=== PATIENT | female | born 1990 | race Caucasian/White ===

== ENCOUNTER → 2017-03-26 | Outpatient (CLI) | payer BC ==
--- NOTE | 2017-03-26 12:26 | Diagnostic Imaging Report ---
INDICATION: survey. TECHNIQUE: Multiple real-time grayscale images were obtained over the gravid uterus. COMPARISON: None FINDINGS: There is a single intrauterine with heart rate of 146 beats per minute. The placenta is anterior and is near the internal os compatible with marginal previa. There is adequate amniotic fluid seen. The cervix is 4.9 cm in length and is closed. The stomach, kidneys, posterior fossa, lateral ventricles, the spine, and two umbilical arteries are seen with no definite abnormality. The four-chamber view and cord insertion are not well seen. Biometrical measurements are as follows: Biparietal 4.28 cm, age 19 weeks 0 days. Head circumference 16.53 cm, age 19 weeks 2 days. Abdominal circumference 13.35 cm, age 18 weeks 6 days. Femur length 3.08 cm, age 19 weeks 4 days. Sonographic estimate age: 19 weeks 2 days. Sonographic estimated date of delivery: 08/18/17. Estimated Weight: 278 gm (+/- 41 gm). LMP percentile: 10%. heart rate: 146 beats per minute. number: 1 of 1. IMPRESSION: Live single intrauterine . Followup study to reevaluate placenta previa, four-chamber view and cord insertion is recommended. Dictated by: Dictated on workstation # [id number]
== END ==
LOC: RAD 10:13
PROVIDERS: ATTEND Obstetrics & Gynecology
DX: Z36.87 Encounter for antenatal screening for uncertain dates (principal); Z3A.19 19 weeks gestation of pregnancy
CPT/HCPCS: 76805

== ENCOUNTER 2017-08-03 19:39 | Outpatient (CLI) | payer BC ==
[~2017-08-03] VITALS: Ht 165.1 cm; Wt 78.9 kg
[2017-08-03 19:37] VITALS: BP 123/69
[2017-08-03] MEDS ORDERED: PREN1TAB19 PO (22:00)
--- NOTE | 2017-08-04 10:52 | Physician Query-Final Dx ---
SOLITARIO MESSINA 08/04/17 1052: Clinic Account Progress/Dx Physician Query: Please give diagnosis Date of Service Aug 03, 2017 at 19:39 STEVEN JEFFREY DO 08/04/17 1559: Clinic Account Progress/Dx DIAGNOSIS: Diagnosis 38 week IUP Prolonged latent phase labor SOLITARIO MESSINA Aug 04, 2017 10:52 STEVEN JEFFREY DO Aug 04, 2017 15:59
== END 2017-08-03 21:05 | disposition home or self-care (01) ==
LOC: WSo 19:39 → LDRP 19:40 → WSo 21:05
PROVIDERS: ATTEND Obstetrics & Gynecology
DX: O62.0 Primary inadequate contractions (principal); Z3A.38 38 weeks gestation of pregnancy
CPT/HCPCS: 99213

== ENCOUNTER 2017-08-17 06:30 | Inpatient (IN) | payer BC ==
[2017-08-17] VITALS (63 sets, daily range): BP systolic 104–141; BP diastolic 55–82
[~2017-08-17] VITALS: Ht 170.2 cm; Wt 80.7 kg
[~2017-08-17 06:30] MED LIST: PREN1TAB19 PO
[2017-08-17] MEDS ORDERED: MINERAL OIL CONCENTRATE 99.9% 15 ML UDC TOP PRN (07:15)
[2017-08-17] MEDS: D5 LR IV SOLUTION 1,000 ML IV SCH ×2 (07:48→15:47)
[2017-08-17 07:50] LABS: BASOPHILS % (AUTO) 0 % (0-10); EOSINOPHILS # (AUTO) 0.1 10^3/uL (0.0-0.3); EOSINOPHILS % (AUTO) 2 % (0-10); HEMATOCRIT 38 % (35-52); HEMOGLOBIN 13.3 G/DL (11.5-16.0); LYMPHOCYTES # (AUTO) 1.4 X 10^3 (1.0-4.0); LYMPHOCYTES % (AUTO) 20 % (12-44); MEAN CORPUSCULAR HEMOGLOBIN 34 PG (25-34); MEAN CORPUSCULAR HGB CONC 35 G/DL (32-36); MEAN CORPUSCULAR VOLUME 98 FL (80-99); MEAN PLATELET VOLUME 8.9 FL (7.4-10.4); MONOCYTES # (AUTO) 0.7 X 10^3 (0.0-1.0); MONOCYTES % (AUTO) 10 % (0-12); NEUTROPHILS # (AUTO) 4.5 X 10^3 (1.8-7.8); NEUTROPHILS % (AUTO) 67 % (42-75); PLATELET COUNT 169 10^3/uL (130-400); RED BLOOD COUNT 3.87 10^6/uL (4.35-5.85); RED CELL DISTRIBUTION WIDTH 13.2 % (10.0-14.5); WHITE BLOOD COUNT 6.8 10^3/uL (4.3-11.0)
--- NOTE | 2017-08-17 08:23 | History & Physical-OB ---
OB - Chief Complaint & HPI Date/Time Date of Admission: Date of Admission: Aug 17, 2017 at 6:30 am Time Seen by Provider: 08:15 Chief Complaint/History OB-Reason for Admission/Chief: Induction of Labor Hx : 1 Hx Para: 0 Expected Date of Delivery: Aug 13, 2017 Gestational Age in Weeks: 40 Gestational Age in Days: 4 Indication for induction: post dates Admission Nurse Assessment Rev: Yes History of Labs O pos Antibody neg RI RPR NR HBsAg NR HIV NR GC neg GBS neg Allergies and Home Medications Allergies Coded Allergies: No Known Drug Allergies (Unverified , 08/03/17) Home Medications Vit/Iron Fumarate/FA 1 Each Tablet, 1 EACH PO DAILY, (Reported) Patient Home Medication List Home Medication List Reviewed: Yes OB - History Hx of Present Care: Yes Ultrasounds: Normal mid trimester US Obstetrical Complications: None Medical Complications: None Delivery History Adverse Rxn to Tranfusion: No Patient Past Medical History n/a Social History/Family History Recent Infectious Disease Expo: No Alcohol Use: Denies Use Recreational Drug Use: No Immunizations Hepatitis A: Yes Hepatitis B: Yes Date of Influenza Vaccine: Mar 08, 2017 OB - Admission Exam Physical Exam HEENT: NCAT Heart: Rhythm Normal Lungs: Clear Abdomen: Gravid Extremities: Normal Reflexes: Normal Cervical Dilatation: 4cm Effacement: 75% Station: -1 Membranes: Intact Heart Rate: 130's Accelerations: Accelerations Present Decelerations: No Decelerations Short Term Variability: Present Skilled Nursing Variability: Average (6-25) Contractions on Admission: 6-10 Minutes Apart Intensity: Mild Nielsen Scoring Tool (Modified) Dilation (cm): 3-4cm (2) Effacement (%): 51-79% (2) Descent/Station: -1,0 (2) Cervix Consistency: Soft (2) Cervix Position: Anterior (2) Subtract 1 point for: Postdate (-1), Nulliparity (-1) Nielsen Score: 8 Labs Laboratory Tests Test 08/17/17 07:30 Range/Units White Blood Count 6.8 4.3-11.0 10^3/uL Red Blood Count 3.87 L 4.35-5.85 10^6/uL Hemoglobin 13.3 11.5-16.0 G/DL Hematocrit 38 35-52 % Mean Corpuscular Volume 98 80-99 FL Mean Corpuscular Hemoglobin 34 25-34 PG Mean Corpuscular Hemoglobin Concent 35 32-36 G/DL Red Cell Distribution Width 13.2 10.0-14.5 % Platelet Count 169 130-400 10^3/uL Mean Platelet Volume 8.9 7.4-10.4 FL Neutrophils (%) (Auto) 67 42-75 % Lymphocytes (%) (Auto) 20 12-44 % Monocytes (%) (Auto) 10 0-12 % Eosinophils (%) (Auto) 2 0-10 % Basophils (%) (Auto) 0 0-10 % Neutrophils # (Auto) 4.5 1.8-7.8 X 10^3 Lymphocytes # (Auto) 1.4 1.0-4.0 X 10^3 Monocytes # (Auto) 0.7 0.0-1.0 X 10^3 Eosinophils # (Auto) 0.1 0.0-0.3 10^3/uL Basophils # (Auto) 0.0 0.0-0.1 10^3/uL OB - Assessment/Plan/Diagnosis Assessment Assessment: induction of labor Admission Dx 26 yo @ 40.4 Post dates GBS neg Admission Status: Inpatient Order (span 2 midnights) Reason for Inpatient Admission: 26 yo @ 40.4 Post dates GBS neg Plan Plan: Induction Induction Method: AROM Discharge Diagnosis Diagnosis: 26 yo @ 40.4 Post dates GBS neg STEVEN JEFFREY DO Aug 17, 2017 8:23 am
[2017-08-17] MEDS ORDERED: OXYTOCIN/NORMAL SALINE 500 ML IV SCH ×2 (12:23→20:32)
[2017-08-17] MEDS ORDERED: SUFENTA 0.6MCG/ML BUPIVA 0.125 100 ML ONE (12:31)
[2017-08-17] MEDS ORDERED: LACTATED RINGERS 1,000 ML IV SCH (13:43)
[2017-08-17] MEDS ORDERED: EPIDURAL (SUFENTA 0.6MCG/ML BUPIVA 0.125%) 100 ML BAG EPI SCH (13:45)
[2017-08-17] MEDS ORDERED: diphenhydrAMINE 50 MG/ML INJ (BENADRYL) IV PRN (13:45)
[2017-08-17] MEDS ORDERED: NALOXONE 0.4 MG/ML 1 ML (NARCAN) VIAL IV PRN ×2 (13:45)
[2017-08-17] MEDS ORDERED: ONDANSETRON 4 MG/2 ML (SDV) Z0FRAN IV PRN (13:45)
[2017-08-17] MEDS ORDERED: METOCLOPRAMIDE INJ 10 MG/2 ML (REGLAN) IV PRN (13:45)
[2017-08-17] MEDS ORDERED: CATHETER FLUSH 10 ML SYR IV SCH ×2 (14:00→22:00)
[2017-08-17] MEDS ORDERED: BUPIVACAINE 0.25% 30 ML (SENSORCAINE) VIAL ONE (18:08)
[2017-08-17] MEDS ORDERED: LIDOCAINE PF 2% 5 ML (XYLOCAINE) VIAL ONE (18:08)
[2017-08-17] MEDS ORDERED: LIDOCAINE/EPI 2% 1:200,00 (XYLOCAINE) 10 ML VIAL ONE (19:36)
--- NOTE | 2017-08-17 20:36 | OB Labor & Delivery Record ---
L&D History Date of Service Date of Service: Aug 17, 2017 History Expected Date of Delivery: Aug 13, 2017 Gestational Age in Weeks: 40 Hx : 1 Hx Para: 0 Complications Events: Routine care Operative Indications (Cesarea: N/A-Vaginal Delivery Intrapartal Events: None L&D Stage1 Stage One Onset of Labor - Date: Aug 17, 2017 Monitors and Tracing Monitor Mode: External Heart Rate: 130 Monitor Accelerations: Uniform Monitor Decelerations: None Station: 0 [employer] Salesperson Variability: Average (6-10) Short Term Variability: Present Presentation: Vertex Vital Signs VS - Last 72 Hours, by Label 08/17/17 08/17/17 08/17/17 08/17/17 09:00 10:00 11:00 12:04 Temp 98.6 99.3 Pulse 72 90 86 91 Resp 18 B/P (MAP) 119/82 (94) 120/76 (91) 127/74 (91) 120/75 (90) O2 Delivery Room Air Room Air Room Air Room Air 08/17/17 08/17/17 08/17/17 08/17/17 13:00 13:15 13:25 13:28 Temp 99.5 Pulse 84 85 87 Resp 20 B/P (MAP) 129/71 (90) 138/74 (95) 131/82 (98) Pulse Ox 98 98 98 O2 Delivery Room Air Room Air Room Air 08/17/17 08/17/17 08/17/17 08/17/17 13:30 13:33 13:38 13:42 Pulse 94 83 88 78 B/P (MAP) 132/81 (98) 134/75 (94) 126/70 (88) Pulse Ox 98 98 97 97 O2 Delivery Room Air Room Air Room Air Room Air 08/17/17 08/17/17 08/17/17 08/17/17 13:45 13:48 13:51 13:54 Pulse 78 76 75 84 B/P (MAP) 120/67 (84) 123/67 (85) 123/71 (88) 120/68 (85) Pulse Ox 97 97 96 96 O2 Delivery Room Air Room Air Room Air Room Air 08/17/17 08/17/17 08/17/17 08/17/17 13:57 14:00 14:03 14:06 Pulse 94 80 85 76 B/P (MAP) 112/63 (79) 117/60 (79) 119/63 (81) 116/62 (80) Pulse Ox 94 97 95 O2 Delivery Room Air Room Air Room Air Room Air 08/17/17 08/17/17 08/17/17 08/17/17 14:09 14:10 14:15 14:20 Pulse 86 71 90 81 B/P (MAP) 114/63 (80) 113/65 (81) 110/59 (76) Pulse Ox 95 95 95 95 O2 Delivery Room Air Room Air Room Air Room Air 08/17/17 08/17/17 08/17/17 08/17/17 14:25 14:30 14:45 15:00 Pulse 79 71 88 85 Resp 16 B/P (MAP) 115/67 (83) 114/64 (81) 114/70 (85) Pulse Ox 95 96 97 98 O2 Delivery Room Air Room Air Room Air Room Air 08/17/17 08/17/17 08/17/17 08/17/17 15:15 15:30 15:45 15:45 Temp 98.4 Pulse 78 82 91 B/P (MAP) 115/59 (77) 117/64 (81) 127/67 (87) Pulse Ox 97 98 98 O2 Delivery Room Air Room Air Room Air Room Air 08/17/17 08/17/17 08/17/17 08/17/17 16:00 16:15 16:30 16:45 Pulse 81 74 75 68 B/P (MAP) 123/64 (83) 111/66 (81) 126/69 (88) 131/73 (92) Pulse Ox 97 98 98 99 O2 Delivery Room Air Room Air Room Air Room Air 08/17/17 08/17/17 08/17/17 08/17/17 17:00 17:15 17:30 17:45 Pulse 71 78 68 64 B/P (MAP) 132/75 (94) 139/74 (95) 116/59 (78) 107/58 (74) Pulse Ox 99 99 99 99 O2 Delivery Room Air Room Air Room Air Room Air 08/17/17 08/17/17 08/17/17 08/17/17 17:48 17:51 17:54 18:00 Pulse 68 76 71 72 B/P (MAP) 124/79 (94) 120/68 (85) 121/70 (87) 115/60 (78) Pulse Ox 98 99 O2 Delivery Room Air Room Air Room Air Room Air 08/17/17 08/17/17 08/17/17 08/17/17 18:00 18:05 18:08 18:11 Temp 98.6 Pulse 76 71 73 B/P (MAP) 111/57 (75) 107/57 (74) 104/55 (71) Pulse Ox 99 99 99 O2 Delivery Room Air Room Air Room Air 08/17/17 08/17/17 08/17/17 08/17/17 18:14 18:17 18:20 18:23 Pulse 75 74 85 80 B/P (MAP) 109/55 (73) 105/59 (74) 109/64 (79) 113/63 (80) Pulse Ox 99 99 99 99 O2 Delivery Room Air Room Air Room Air Room Air 08/17/17 08/17/17 08/17/17 08/17/17 18:26 18:29 18:32 18:35 Pulse 78 80 81 72 B/P (MAP) 116/61 (79) 109/56 (73) 116/60 (78) 109/58 (75) Pulse Ox 99 99 100 O2 Delivery Room Air Room Air Room Air Room Air 08/17/17 08/17/17 08/17/17 18:38 18:45 19:00 Pulse 75 82 82 B/P (MAP) 110/59 (76) 119/63 (81) 119/63 (81) Pulse Ox 100 100 100 O2 Delivery Room Air Room Air Room Air Rupture of Membranes Spontaneous Ruture of Membrane: No Amniotic Membrane Rupture Time: 0758 Amniotic Membrane Fluid Desc.: Clear Vaginal Bleeding Description: Normal Show Induction/Anesthesia Epidural Cath Placement - Time: 1333 Progress/Notes Pitocin augmentation was started using a low dose protocol, after epidural was placed. L&D Stage2 Stage Two Stage II Date: Aug 17, 2017 Monitors and Tracing Monitor Mode: External Heart Rate: 130 Monitor Accelerations: Uniform Monitor Decelerations: Variable Mcc Variability: Moderate (11-25) Short Term Variability: Present Position: Right Occiput Anterior (with a compound presentation of the left hand) Presentation: Vertex Cord Descript/Complications Cord Vessel Description: 3 Vessels Complications nuchal cord x 2 Delivery Type Anterior Shoulder: Left Episiotomy/Perineal Laceration Laceraction(s)/Extensions: Yes Episiotomy Description: Right Mediolateral Location Modifier: Right Degree (describe repair) RML repaired in usual fashion using 3-0 and 2-0 vicryl suture Condition of Delivery 1 minute Comment: 8 5 minute Comment: 9 Notes Live female infant weight pending, remained skin to skin Condition of Condition of : Living Exam: No Observed Abnormalities Resuscitation Resuscitation: N/A - Spontaneous Resp L&D Stage3 Stage Three Stage III Date: Aug 17, 2017 Pictocin Pitocin Administration mu/min: 30 Pitocin ml/hr: 30 Pitocin Administration Comment: Wide open 30 mu at delivery of placenta Placenta Delivery Placenta Delivery: Spontaneous Delivery Summary Summary Estimated blood loss (mL): 400 Attending at delivery: Steven Jeffrey DO Condition of Delivery Examined: Cervix Examined, Uterus Explored Post Hemorrhage: No Condition of Mother stable Condition of (s) stable STEVEN JEFFREY DO Aug 17, 2017 8:36 pm
--- NOTE | 2017-08-17 20:37 | Discharge Inst-Women's Service ---
Discharge Inst-Women's Serv Depart Medication/Instructions New, Converted or Re-Newed RX: RX on Chart Consults/Follow Up Additional Follow Up: Yes Orders/Referrals Dr. Jeffrey in 6 weeks Activity Activity: Activity as Tolerated Driving Instructions: No Driving for 1 Week NO SMOKING: NO SMOKING Nothing Inside Vagina: No Douching, No [place], No Tampons Diet Discharge Diet: No Restrictions Symptoms to Report to : Bleeding Excessive, Pain Increased, Fever Over 101 Degrees F, Vaginal Bleeding Increase, Questions/Concerns For Any Problems or Questions: Contact Your Physician Skin/Wound Care Bathing Instructions: Shower (x 2 weeks or sitz baths only) STEVEN JEFFREY DO Aug 17, 2017 8:37 pm
[2017-08-17] MEDS ORDERED: ACHD5005 PO (20:38)
[2017-08-17] MEDS ORDERED: IBUP-1773 PO (20:38)
[2017-08-17] MEDS ORDERED: FERR325T18 PO (20:38)
[2017-08-17] MEDS ORDERED: Benzocaine/Menthol TP (20:38)
[2017-08-17] MEDS ORDERED: DOCU100C37 PO (20:38)
[2017-08-17] MEDS ORDERED: BENZOCAINE/MENTHOL (DERMOPLAST) 56 ML CAN TP PRN (20:45)
[2017-08-17] MEDS ORDERED: HYDROcodone/APAP 5 MG/325 MG (LORTAB) TAB PO PRN (20:45)
[2017-08-17] MEDS ORDERED: DIBUCAINE (NUPERCAINAL) 1% OINT 30 GM TOP PRN (20:45)
[2017-08-17] MEDS ORDERED: WITCH HAZEL(TUCKS) 40 EA JAR TOP PRN (20:45)
[2017-08-17] MEDS ORDERED: TETANUS,DIPTH,PERTUSS P/F (BOOSTRIX) 0.5 ML VIAL IM ONE (20:45)
[2017-08-17] MEDS ORDERED: MEASLES,MUMPS,RUBELLA 1 EA INJ SQ ONE (20:45)
[2017-08-17] MEDS: IBUPROFEN 600 MG (MOTRIN) TAB PO SCH (21:34)
[2017-08-17] MEDS: DOCUSATE SODIUM 100 MG (COLACE) CAP PO SCH (22:44)
[2017-08-18 03:00] VITALS: BP 102/57
[2017-08-18] MEDS: IBUPROFEN 600 MG (MOTRIN) TAB PO SCH ×4 (03:44→21:28)
[2017-08-18 06:27] LABS: BASOPHILS % (AUTO) 0 % (0-10); EOSINOPHILS # (AUTO) 0.1 10^3/uL (0.0-0.3); EOSINOPHILS % (AUTO) 1 % (0-10); HEMATOCRIT 29 % (35-52); HEMOGLOBIN 9.9 G/DL (11.5-16.0); LYMPHOCYTES # (AUTO) 1.4 X 10^3 (1.0-4.0); LYMPHOCYTES % (AUTO) 11 % (12-44); MEAN CORPUSCULAR HEMOGLOBIN 35 PG (25-34); MEAN CORPUSCULAR HGB CONC 34 G/DL (32-36); MEAN CORPUSCULAR VOLUME 102 FL (80-99); MEAN PLATELET VOLUME 9.3 FL (7.4-10.4); MONOCYTES # (AUTO) 0.9 X 10^3 (0.0-1.0); MONOCYTES % (AUTO) 7 % (0-12); NEUTROPHILS # (AUTO) 10.2 X 10^3 (1.8-7.8); NEUTROPHILS % (AUTO) 81 % (42-75); PLATELET COUNT 146 10^3/uL (130-400); RED BLOOD COUNT 2.83 10^6/uL (4.35-5.85); WHITE BLOOD COUNT 12.5 10^3/uL (4.3-11.0)
--- NOTE | 2017-08-18 08:33 | Postpartum Progress Note ---
Note Note Day # 1 Subjective: Patient is without complaints. Ambulating, voiding. Tolerating a regular diet without nausea or vomiting. Normal lochia. Pain is well controlled with oral pain medications. [] feeding. [] Objective: Vital Sign - Last 24 Hours 08/17/17 08/17/17 08/17/17 08/17/17 09:00 10:00 11:00 12:04 Temp 98.6 99.3 Pulse 72 90 86 91 Resp 18 B/P (MAP) 119/82 (94) 120/76 (91) 127/74 (91) 120/75 (90) O2 Delivery Room Air Room Air Room Air Room Air 08/17/17 08/17/17 08/17/17 08/17/17 13:00 13:15 13:25 13:28 Temp 99.5 Pulse 84 85 87 Resp 20 B/P (MAP) 129/71 (90) 138/74 (95) 131/82 (98) Pulse Ox 98 98 98 O2 Delivery Room Air Room Air Room Air 08/17/17 08/17/17 08/17/17 08/17/17 13:30 13:33 13:38 13:42 Pulse 94 83 88 78 B/P (MAP) 132/81 (98) 134/75 (94) 126/70 (88) Pulse Ox 98 98 97 97 O2 Delivery Room Air Room Air Room Air Room Air 08/17/17 08/17/17 08/17/17 08/17/17 13:45 13:48 13:51 13:54 Pulse 78 76 75 84 B/P (MAP) 120/67 (84) 123/67 (85) 123/71 (88) 120/68 (85) Pulse Ox 97 97 96 96 O2 Delivery Room Air Room Air Room Air Room Air 08/17/17 08/17/17 08/17/17 08/17/17 13:57 14:00 14:03 14:06 Pulse 94 80 85 76 B/P (MAP) 112/63 (79) 117/60 (79) 119/63 (81) 116/62 (80) Pulse Ox 94 97 95 O2 Delivery Room Air Room Air Room Air Room Air 08/17/17 08/17/17 08/17/17 08/17/17 14:09 14:10 14:15 14:20 Pulse 86 71 90 81 B/P (MAP) 114/63 (80) 113/65 (81) 110/59 (76) Pulse Ox 95 95 95 95 O2 Delivery Room Air Room Air Room Air Room Air 08/17/17 08/17/17 08/17/17 08/17/17 14:25 14:30 14:45 15:00 Pulse 79 71 88 85 Resp 16 B/P (MAP) 115/67 (83) 114/64 (81) 114/70 (85) Pulse Ox 95 96 97 98 O2 Delivery Room Air Room Air Room Air Room Air 08/17/17 08/17/17 08/17/17 08/17/17 15:15 15:30 15:45 15:45 Temp 98.4 Pulse 78 82 91 B/P (MAP) 115/59 (77) 117/64 (81) 127/67 (87) Pulse Ox 97 98 98 O2 Delivery Room Air Room Air Room Air Room Air 08/17/17 08/17/17 08/17/17 08/17/17 16:00 16:15 16:30 16:45 Pulse 81 74 75 68 B/P (MAP) 123/64 (83) 111/66 (81) 126/69 (88) 131/73 (92) Pulse Ox 97 98 98 99 O2 Delivery Room Air Room Air Room Air Room Air 08/17/17 08/17/17 08/17/17 08/17/17 17:00 17:15 17:30 17:45 Pulse 71 78 68 64 B/P (MAP) 132/75 (94) 139/74 (95) 116/59 (78) 107/58 (74) Pulse Ox 99 99 99 99 O2 Delivery Room Air Room Air Room Air Room Air 08/17/17 08/17/17 08/17/17 08/17/17 17:48 17:51 17:54 18:00 Pulse 68 76 71 72 B/P (MAP) 124/79 (94) 120/68 (85) 121/70 (87) 115/60 (78) Pulse Ox 98 99 O2 Delivery Room Air Room Air Room Air Room Air 08/17/17 08/17/17 08/17/17 08/17/17 18:00 18:05 18:08 18:11 Temp 98.6 Pulse 76 71 73 B/P (MAP) 111/57 (75) 107/57 (74) 104/55 (71) Pulse Ox 99 99 99 O2 Delivery Room Air Room Air Room Air 08/17/17 08/17/17 08/17/17 08/17/17 18:14 18:17 18:20 18:23 Pulse 75 74 85 80 B/P (MAP) 109/55 (73) 105/59 (74) 109/64 (79) 113/63 (80) Pulse Ox 99 99 99 99 O2 Delivery Room Air Room Air Room Air Room Air 08/17/17 08/17/17 08/17/17 08/17/17 18:26 18:29 18:32 18:35 Pulse 78 80 81 72 B/P (MAP) 116/61 (79) 109/56 (73) 116/60 (78) 109/58 (75) Pulse Ox 99 99 100 O2 Delivery Room Air Room Air Room Air Room Air 08/17/17 08/17/17 08/17/17 08/17/17 18:38 18:45 19:00 19:05 Temp 98.1 Pulse 75 82 82 73 B/P (MAP) 110/59 (76) 119/63 (81) 119/63 (81) 106/58 (74) Pulse Ox 100 100 100 100 O2 Delivery Room Air Room Air Room Air Room Air 08/17/17 08/17/17 08/17/17 08/17/17 19:15 19:30 19:50 20:25 Temp 98.7 100.0 Pulse 91 99 118 103 B/P (MAP) 130/80 (97) 134/81 (98) 141/63 (89) 113/76 (88) Pulse Ox 100 96 O2 Delivery Room Air Room Air 08/17/17 08/17/17 08/17/17 08/17/17 20:40 20:55 21:25 21:55 Temp 99.2 99.5 98.9 Pulse 103 106 96 85 B/P (MAP) 124/71 (88) 125/62 (83) 119/70 (86) 116/73 (87) 08/17/17 08/18/17 22:35 03:00 Temp 98.0 97.3 Pulse 81 72 Resp 14 B/P (MAP) 114/67 (83) 102/57 (72) Pulse Ox 97 O2 Delivery Room Air Intake and Output 08/17/17 08/17/17 08/18/17 15:00 23:00 07:00 Intake Total 1000 ml 3000 ml 1000 ml Output Total 2700 ml Balance 1000 ml 300 ml 1000 ml Physical Exam: General - Alert and oriented, no apparent distress Abdomen - Soft, appropriately tender to palpation, non-distended, fundus firm at umbilicus Extremities - no edema, negative Nella's bilaterally Assessment: PPD 1 NVD Acute blood loss anemia Plan: Routine care. Encourage breast feeding. Encourage ambulation. Ferrous sulfate supplementation. Plan for discharge tomorrow Vitals - Labs Vital Signs - I&O Vital Signs Date Time Temp Pulse Resp B/P (MAP) Pulse Ox O2 Delivery O2 Flow Rate FiO2 08/18/17 03:00 97.3 72 14 102/57 (72) 97 Room Air 08/17/17 22:35 98.0 81 114/67 (83) 08/17/17 21:55 98.9 85 116/73 (87) 08/17/17 21:25 99.5 96 119/70 (86) 08/17/17 20:55 106 125/62 (83) 08/17/17 20:40 99.2 103 124/71 (88) 08/17/17 20:25 100.0 103 113/76 (88) 08/17/17 19:50 98.7 118 141/63 (89) 08/17/17 19:30 99 134/81 (98) 96 Room Air 08/17/17 19:15 91 130/80 (97) 100 Room Air 08/17/17 19:05 98.1 73 106/58 (74) 100 Room Air 08/17/17 19:00 82 119/63 (81) 100 Room Air 08/17/17 18:45 82 119/63 (81) 100 Room Air 08/17/17 18:38 75 110/59 (76) 100 Room Air 08/17/17 18:35 72 109/58 (75) Room Air 08/17/17 18:32 81 116/60 (78) 100 Room Air 08/17/17 18:29 80 109/56 (73) 99 Room Air 08/17/17 18:26 78 116/61 (79) 99 Room Air 08/17/17 18:23 80 113/63 (80) 99 Room Air 3/20/18 18:20 85 109/64 (79) 99 Room Air 320/18 18:17 74 105/59 (74) 99 Room Air 318 18:14 75 109/55 (73) 99 Room Air 320/18 18:11 73 104/55 (71) 99 Room Air 320/18 18:08 71 107/57 (74) 99 Room Air 18 18:05 76 111/57 (75) 99 Room Air 320/18 18:00 98.6 18 18:00 72 115/60 (78) 99 Room Air 18 17:54 71 121/70 (87) Room Air 18 17:51 76 120/68 (85) 98 Room Air 18 17:48 68 124/79 (94) Room Air 08/17/18 17:45 64 107/58 (74) 99 Room Air 18 17:30 68 116/59 (78) 99 Room Air 18 17:15 78 139/74 (95) 99 Room Air 18 17:00 71 132/75 (94) 99 Room Air 18 16:45 68 131/73 (92) 99 Room Air 18 16:30 75 126/69 (88) 98 Room Air 18 16:15 74 111/66 (81) 98 Room Air 320/18 16:00 81 123/64 (83) 97 Room Air 18 15:45 98.4 98 Room Air 18 15:45 91 127/67 (87) Room Air 320/18 15:30 82 117/64 (81) 98 Room Air 320/18 15:15 78 115/59 (77) 97 Room Air 320/18 15:00 85 98 Room Air 320/18 14:45 88 114/70 (85) 97 Room Air 320/18 14:30 71 16 114/64 (81) 96 Room Air 320/18 14:25 79 115/67 (83) 95 Room Air 320/18 14:20 81 110/59 (76) 95 Room Air 32018 14:15 90 95 Room Air 32018 14:10 71 113/65 (81) 95 Room Air 08/17/17 14:09 86 114/63 (80) 95 Room Air 08/17/17 14:06 76 116/62 (80) 95 Room Air 08/17/17 14:03 85 119/63 (81) Room Air 08/17/17 14:00 80 117/60 (79) 97 Room Air 08/17/17 13:57 94 112/63 (79) 94 Room Air 08/17/17 13:54 84 120/68 (85) 96 Room Air 08/17/17 13:51 75 123/71 (88) 96 Room Air 08/17/17 13:48 76 123/67 (85) 97 Room Air 08/17/17 13:45 78 120/67 (84) 97 Room Air 08/17/17 13:42 78 126/70 (88) 97 Room Air 08/17/17 13:38 88 134/75 (94) 97 Room Air 08/17/17 13:33 83 132/81 (98) 98 Room Air 08/17/17 13:30 94 98 Room Air 08/17/17 13:28 87 131/82 (98) 98 Room Air 08/17/17 13:25 85 138/74 (95) 98 Room Air 08/17/17 13:15 84 129/71 (90) 98 Room Air 08/17/17 13:00 99.5 20 08/17/17 12:04 91 120/75 (90) Room Air 08/17/17 11:00 99.3 86 127/74 (91) Room Air 08/17/17 10:00 90 120/76 (91) Room Air 08/17/17 09:00 98.6 72 18 119/82 (94) Room Air I & O 08/18/17 07:00 Intake Total 5000 ml Output Total 2700 ml Balance 2300 ml Labs Laboratory Tests 08/18/17 05:30: White Blood Count 12.5H, Red Blood Count 2.83L, Hemoglobin 9.9#L, Hematocrit 29L , Mean Corpuscular Volume 102H, Mean Corpuscular Hemoglobin 35H, Mean Corpuscular Hemoglobin Concent 34, Red Cell Distribution Width 13.0, Platelet Count 146, Mean Platelet Volume 9.3, Neutrophils (%) (Auto) 81H, Lymphocytes (% ) (Auto) 11L, Monocytes (%) (Auto) 7, Eosinophils (%) (Auto) 1, Basophils (%) ( Auto) 0, Neutrophils # (Auto) 10.2H, Lymphocytes # (Auto) 1.4, Monocytes # (Auto ) 0.9, Eosinophils # (Auto) 0.1, Basophils # (Auto) 0.0 STEVEN JEFFREY DO Aug 18, 2017 8:33 am
[2017-08-18] MEDS: PRENATAL VITAMIN 1 EA TAB PO SCH (08:42)
[2017-08-18] MEDS: FERROUS SULF 325 MG (IRON) TAB PO SCH (08:43)
[2017-08-18] MEDS: DOCUSATE SODIUM 100 MG (COLACE) CAP PO SCH ×2 (08:43→21:28)
[2017-08-18 08:48] VITALS: BP 112/75
--- NOTE | 2017-08-18 08:51 | Anesthesia-Regional Post-Op ---
Regional Patient Condition Mental Status: Alert, Oriented x3 Circulation: Same as Pre-Op Headache: Absent Sensation: Full Recovery Motor Block: Absent Post Op Complications Complications None Follow Up Care/Instructions Patient Instructions None needed. Anesthesia/Patient Condition Patient is doing well, no complaints, stable vital signs, no apparent adverse anesthesia problems. No complications reported per nursing. ASHLEIGH MODI CRNA Aug 18, 2017 08:51
[2017-08-18 13:10] VITALS: BP 122/81
[2017-08-18 18:32] VITALS: BP 117/68
[2017-08-18 21:28] VITALS: BP 111/67
[2017-08-19 04:55] VITALS: BP 124/83
[2017-08-19] MEDS: IBUPROFEN 600 MG (MOTRIN) TAB PO SCH ×2 (04:58→11:22)
[2017-08-19] MEDS: DOCUSATE SODIUM 100 MG (COLACE) CAP PO SCH (08:51)
[2017-08-19] MEDS: PRENATAL VITAMIN 1 EA TAB PO SCH (08:52)
[2017-08-19] MEDS: FERROUS SULF 325 MG (IRON) TAB PO SCH (08:52)
[2017-08-19 09:00] VITALS: BP 118/78
--- NOTE | 2017-08-19 09:28 | Postpartum Progress Note ---
Note Note Day # 2 Subjective: Patient is without complaints. Ambulating, voiding. Tolerating a regular diet without nausea or vomiting. Normal lochia. Pain is well controlled with oral pain medications. Objective: Vital Signs 08/18/17 08/19/17 18:32 04:55 Temp 96.3 Pulse 74 Resp 18 B/P (MAP) 124/83 (97) Pulse Ox 100 O2 Delivery Room Air Physical Exam: General - Alert and oriented, no apparent distress Abdomen - Soft, appropriately tender to palpation, non-distended, fundus firm at umbilicus Extremities - no edema, negative Nella's bilaterally Assessment: PPD 2 NVD Acute blood loss anemia Plan: Routine care. Encourage breast feeding. Encourage ambulation. Ferrous sulfate supplementation. Plan for discharge today Vitals - Labs Vital Signs - I&O Vital Signs Date Time Temp Pulse Resp B/P (MAP) Pulse Ox O2 Delivery O2 Flow Rate FiO2 08/19/17 04:55 96.3 74 18 124/83 (97) 100 08/18/17 21:28 96.9 83 18 111/67 (82) 97 08/18/17 18:32 97.7 101 18 117/68 (84) 98 Room Air 08/18/17 13:10 97.9 91 18 122/81 (95) 99 Room Air STEVEN JEFFREY DO Aug 19, 2017 9:28 am
== END 2017-08-19 12:30 | disposition home or self-care (01) | DRG 775 ==
LOC: LDRP 06:30
PROVIDERS: ADMIT Obstetrics & Gynecology; ATTEND Obstetrics & Gynecology
PROC: 0W8NXZZ Division of Female Perineum, External Approach (ICD-10-PCS; principal; 2017-08-17)
PROC: 10E0XZZ Delivery of Products of Conception, External Approach (ICD-10-PCS; 2017-08-17)
PROC: 10907ZC Drainage of Amniotic Fluid, Therapeutic from Products of Conception, Via Natural or Artificial Opening (ICD-10-PCS; 2017-08-17)
DX: O48.0 Post-term pregnancy (principal); O90.81 Anemia of the puerperium; D62 Acute posthemorrhagic anemia; Z3A.40 40 weeks gestation of pregnancy; Z37.0 Single live birth
CPT/HCPCS: 36415; 85025; 86850; 86900; 86901